=== PATIENT | male | born 1975 | race Caucasian/White ===

== ENCOUNTER 2023-12-30 08:11 | Emergency (ER) | payer OTHER ==
[~2023-12-30] VITALS: Ht 175.3 cm; Wt 91.1 kg
[2023-12-30 09:00] VITALS: BP 107/76; PULSE 85; RESP 16; TEMP 98.2; O2SAT 96
[2023-12-30 09:49] LABS: Urine Bacteria None Seen /hpf (None Seen)
[2023-12-30 10:01] LABS: Urine Blood Negative /uL (Negative); Urine Clarity Turbid (Clear); Urine Color Yellow (Yellow); Urine Hyaline Cast FEW /lpf (0 - 2); Urine Mucus FEW (None Seen); Urine Protein, UAD 1+ (Negative); Urine Specific Gravity 1.039 (1.001-1.035); Urine Urobilinogen 12 mg/dL (Negative); Urine WBC 12 /hpf (0 - 3); Urine pH 5.5 (5.0-9.0)
[2023-12-30 10:11] LABS: Basophils # (auto) 0 10 ^3/uL (0-0.2); Basophils % (auto) 0.2 % (0.0-2.0); Eosinophils # (auto) 0 10 ^3/uL (0-0.8); Eosinophils % (auto) 0.5 % (0.0-7.0); Hematocrit 33.4 % (41.0-53.0); Hemoglobin 11.3 g/dL (13.5-17.5); Lymphocytes # (auto) 0.5 10 ^3/uL (0.4-5.4); Lymphocytes % (auto) 11.5 % (10.0-50.0); Mean Corpuscular Hemoglobin 27.2 pg (28.0-32.0); Mean Corpuscular Volume 80.1 fL (80.0-100.0); Monocytes # (auto) 0.5 10 ^3/uL (0-1.3); Monocytes % (auto) 11.8 % (0.0-12.0); Neutrophils # (auto) 3.2 10 ^3/uL (1.6-8.6); Nucleated Red Blood Cells % 0.1 %; Platelet Count (auto) 72 10^3/uL (140-450); Red Blood Cells 4.17 10^6/uL (4.5-5.90); Red Cell Distribution Width 15.8 % (11.8-14.3); White Blood Cell 4.2 10^3/uL (4.4-10.8)
[2023-12-30 10:27] LABS: Chloride 104 mmol/L (98-107); Potassium 3.9 mmol/L (3.5-5.1); Sodium 137 mmol/L (136-145)
[2023-12-30 10:28] LABS: Anion Gap 7 (5-15); Carbon Dioxide 26 mmol/L (20-30)
[2023-12-30 10:29] LABS: Calcium 8.9 mg/dL (8.7-10.4)
[2023-12-30 10:33] LABS: BUN/Creatinine Ratio 15.1 (10.0-20.0); Blood Urea Nitrogen 14 mg/dL (9-23); Glucose 102 mg/dL (74-106)
[2023-12-30] MEDS ORDERED: POTA-228 PO (10:52)
[2023-12-30] MEDS ORDERED: NAPR-746 PO (10:52)
[2023-12-30] MEDS ORDERED: FURO1TAB31 PO ×2 (10:52→18:14)
== END 2023-12-30 10:51 | disposition home or self-care (01) ==
LOC: ER 08:11
DX: M71.22 Synovial cyst of popliteal space [Baker], left knee (principal); R60.9 Edema, unspecified
CPT/HCPCS: 36415; 80048; 81001; 83880; 85025; 93971

== ENCOUNTER 2024-01-01 07:48 | Inpatient (IN) | payer OTHER ==
[~2024-01-01] VITALS: Ht 175.3 cm; Wt 91.4 kg
[~2024-01-01 07:48] MED LIST: FURO1TAB31 PO; NAPR-746 PO; POTA-228 PO
[2024-01-01 09:30] VITALS: RESP 16; O2SAT 98
[2024-01-01 09:48] LABS: Basophils # (auto) 0 10 ^3/uL (0-0.2); Basophils % (auto) 0.5 % (0.0-2.0); Eosinophils # (auto) 0 10 ^3/uL (0-0.8); Eosinophils % (auto) 0.4 % (0.0-7.0); Hematocrit 33.4 % (41.0-53.0); Hemoglobin 11.4 g/dL (13.5-17.5); Lymphocytes # (auto) 0.4 10 ^3/uL (0.4-5.4); Mean Corpuscular Hemoglobin 27.8 pg (28.0-32.0); Mean Corpuscular Hgb Conc. 34.2 g/dL (32.0-36.0); Mean Corpuscular Volume 81.2 fL (80.0-100.0); Monocytes # (auto) 0.4 10 ^3/uL (0-1.3); Monocytes % (auto) 8.7 % (0.0-12.0); Neutrophils # (auto) 3.8 10 ^3/uL (1.6-8.6); Neutrophils % (auto) 82.4 % (37.0-80.0); Platelet Count (auto) 106 10^3/uL (140-450); Red Blood Cells 4.12 10^6/uL (4.5-5.90); Red Cell Distribution Width 15.4 % (11.8-14.3); White Blood Cell 4.6 10^3/uL (4.4-10.8)
[2024-01-01] MEDS: cefTRIAXone 1GM/50ML D5W 50 ML IV ONE (09:48)
[2024-01-01] MEDS: KETOROLAC TROMETH 30 MG/ML 1ML VIAL IV ONE (09:48)
[2024-01-01 09:49] LABS: Chloride 100 mmol/L (98-107); Potassium 3.2 mmol/L (3.5-5.1); Sodium 136 mmol/L (136-145)
[2024-01-01 09:50] LABS: Anion Gap 8 (5-15); Carbon Dioxide 28 mmol/L (20-31)
[2024-01-01 09:51] LABS: Calcium 8.8 mg/dL (8.7-10.4)
[2024-01-01 09:55] LABS: BUN/Creatinine Ratio 10.9 (10.0-20.0); Blood Urea Nitrogen 10 mg/dL (9-23); Glucose 96 mg/dL (74-106)
[2024-01-01] MEDS: CLINDAMYCIN 900MG IV 50 ML IV ONE (10:21)
[2024-01-01] MEDS: POTASSIUM CHL 20 Meq TABLET PO ONE (10:29)
[2024-01-01] MEDS ORDERED: ONDANSETRON HCL 4 MG/2 ML VIAL IV PRN (16:45)
[2024-01-01] MEDS ORDERED: NITROGLYCERIN 0.4 MG SL TAB SL PRN (16:45)
[2024-01-01] MEDS ORDERED: DOCUSATE SOD 100 MG CAP PO PRN (16:45)
[2024-01-01] MEDS: PIPERACILLIN-TAZOB 3.375GM 100 ML IV ONE (16:45)
[2024-01-01] MEDS: MORPHINE SULFATE INJ 2 MG/ml SYRG IV PRN (17:58)
[2024-01-01] MEDS: ENOXAPARIN SOD 40 MG/0.4 ML SYRINGE SC SCH (18:11)
[2024-01-01] MEDS: PIPERACILLIN-TAZOB 3.375GM 100 ML IV SCH (18:44)
[2024-01-01 19:00] VITALS: BP 108/65; PULSE 94; RESP 16; TEMP 99.2; O2SAT 98
[2024-01-01 19:36] VITALS: BP 108/65; PULSE 94; RESP 16; TEMP 99.2; O2SAT 98
[2024-01-01 21:00] VITALS: BP 106/59; PULSE 109; RESP 18; TEMP 100.2; O2SAT 94
[2024-01-01] MEDS: HYDROcodone-ACET 5/325MG TAB PO PRN (21:46)
[2024-01-02 01:00] VITALS: BP 92/50; PULSE 90; RESP 15; TEMP 98.7; O2SAT 94
[2024-01-02 05:04] VITALS: BP 95/57; PULSE 73; RESP 18; TEMP 98.1; O2SAT 94
[2024-01-02 08:07] LABS: Basophils # (auto) 0 10 ^3/uL (0-0.2); Basophils % (auto) 0.4 % (0.0-2.0); Eosinophils # (auto) 0 10 ^3/uL (0-0.8); Eosinophils % (auto) 0.3 % (0.0-7.0); Hematocrit 30.5 % (41.0-53.0); Hemoglobin 10.2 g/dL (13.5-17.5); Lymphocytes # (auto) 0.5 10 ^3/uL (0.4-5.4); Lymphocytes % (auto) 10.2 % (10.0-50.0); Mean Corpuscular Hemoglobin 27.3 pg (28.0-32.0); Mean Corpuscular Hgb Conc. 33.6 g/dL (32.0-36.0); Mean Corpuscular Volume 81.4 fL (80.0-100.0); Monocytes # (auto) 0.4 10 ^3/uL (0-1.3); Monocytes % (auto) 7.6 % (0.0-12.0); Neutrophils % (auto) 81.5 % (37.0-80.0); Nucleated Red Blood Cells % 0.2 %; Platelet Count (auto) 112 10^3/uL (140-450); Red Blood Cells 3.74 10^6/uL (4.5-5.90); Red Cell Distribution Width 15.5 % (11.8-14.3); White Blood Cell 4.9 10^3/uL (4.4-10.8)
[2024-01-02 08:25] LABS: Albumin 3.2 g/dL (3.2-4.8); Alkaline Phosphatase 83 U/L (46-116); Anion Gap 10 (5-15); BUN/Creatinine Ratio 13.9 (10.0-20.0); Blood Urea Nitrogen 11 mg/dL (9-23); Calcium 8.4 mg/dL (8.7-10.4); Carbon Dioxide 24 mmol/L (20-31); Chloride 102 mmol/L (98-107); Glucose 93 mg/dL (74-106); Potassium 3.2 mmol/L (3.5-5.1); Sodium 136 mmol/L (136-145)
[2024-01-02 08:26] LABS: Aspartate Aminotransferase 12 U/L (13-40); Bilirubin, Total 1.1 mg/dL (0.2-1.0); Total Protein 6.1 g/dL (5.7-8.2)
[2024-01-02 08:28] LABS: Alanine Aminotransferase < 9 U/L (7-40)
[2024-01-02 09:00] VITALS: BP 104/65; PULSE 85; RESP 20; TEMP 99.3; O2SAT 95
[2024-01-02] MEDS: ACETAMINOPHEN 325 MG TAB PO PRN (12:27)
[2024-01-02] MEDS: SOD CHL 0.9%/ KCL 40MEQ 1,000 ML IV SCH (15:30)
[2024-01-02 17:00] VITALS: BP 96/57; PULSE 96; RESP 19; TEMP 98.3; O2SAT 100
[2024-01-02] MEDS ORDERED: CLINDAMYCIN 900MG IV 50 ML IV ONE ×2 (18:00→20:00)
[2024-01-02 21:00] VITALS: BP 102/59; PULSE 82; RESP 20; TEMP 98.9; O2SAT 95
[2024-01-02] MEDS: CLINDAMYCIN 600MG IV 50 ML IV SCH (22:41)
[2024-01-03 01:00] VITALS: BP 101/59; PULSE 80; RESP 18; TEMP 98.1; O2SAT 100
[2024-01-03 05:00] VITALS: BP 97/62; PULSE 85; RESP 18; TEMP 98.2; O2SAT 98
[2024-01-03] MEDS: POTASSIUM EFFERVESENT TAB 25 MEQ GT SCH (09:04)
[2024-01-03] MEDS ORDERED: VANCOMYCIN PER PHARMACY 0 MG IV SCH (09:30)
[2024-01-03] MEDS: VANCOMYCIN 1GM/250ML 200 ML IV SCH ×2 (10:44→22:01)
[2024-01-03] MEDS: ERTAPENEM SOD INJ 1 GM in SODIUM CHL 0.9% 50 ML IV ONE (10:50)
[2024-01-03 11:07] LABS: Basophils # (auto) 0 10 ^3/uL (0-0.2); Basophils % (auto) 0.6 % (0.0-2.0); Eosinophils # (auto) 0 10 ^3/uL (0-0.8); Eosinophils % (auto) 1.1 % (0.0-7.0); Hematocrit 30.2 % (41.0-53.0); Hemoglobin 10.3 g/dL (13.5-17.5); Lymphocytes # (auto) 0.5 10 ^3/uL (0.4-5.4); Lymphocytes % (auto) 12.9 % (10.0-50.0); Mean Corpuscular Hemoglobin 27.4 pg (28.0-32.0); Mean Corpuscular Volume 80.4 fL (80.0-100.0); Monocytes # (auto) 0.3 10 ^3/uL (0-1.3); Monocytes % (auto) 7.8 % (0.0-12.0); Neutrophils # (auto) 3.1 10 ^3/uL (1.6-8.6); Neutrophils % (auto) 77.6 % (37.0-80.0); Nucleated Red Blood Cells % 0.1 %; Platelet Count (auto) 139 10^3/uL (140-450); Red Blood Cells 3.75 10^6/uL (4.5-5.90); Red Cell Distribution Width 15.4 % (11.8-14.3)
[2024-01-03 11:38] LABS: Erythrocyte Sedimentation Rate 96 mm/hr (0-20)
[2024-01-03 21:00] VITALS: BP 94/57; PULSE 93; RESP 20; TEMP 98.4; O2SAT 95
[2024-01-04 01:00] VITALS: BP 96/57; PULSE 86; RESP 20; TEMP 98.3; O2SAT 96
[2024-01-04 05:00] VITALS: BP 100/65; PULSE 76; RESP 20; TEMP 97.8; O2SAT 96
[2024-01-04 08:06] LABS: Basophils # (auto) 0 10 ^3/uL (0-0.2); Basophils % (auto) 0.8 % (0.0-2.0); Eosinophils # (auto) 0.1 10 ^3/uL (0-0.8); Eosinophils % (auto) 1.7 % (0.0-7.0); Hematocrit 26.6 % (41.0-53.0); Lymphocytes # (auto) 0.6 10 ^3/uL (0.4-5.4); Lymphocytes % (auto) 17.2 % (10.0-50.0); Mean Corpuscular Hemoglobin 27.3 pg (28.0-32.0); Mean Corpuscular Hgb Conc. 33.8 g/dL (32.0-36.0); Mean Corpuscular Volume 80.7 fL (80.0-100.0); Monocytes # (auto) 0.3 10 ^3/uL (0-1.3); Monocytes % (auto) 9.3 % (0.0-12.0); Neutrophils # (auto) 2.4 10 ^3/uL (1.6-8.6); Platelet Count (auto) 128 10^3/uL (140-450); Red Cell Distribution Width 15.5 % (11.8-14.3); White Blood Cell 3.4 10^3/uL (4.4-10.8)
[2024-01-04 08:41] VITALS: BP 105/68; PULSE 76; RESP 18; TEMP 97.6; O2SAT 98
[2024-01-04 08:47] LABS: Hepatitis B Surface Antigen Negative (Negative)
[2024-01-04 09:09] LABS: Hepatitis C Antibody Negative (Negative)
[2024-01-04] MEDS: ERTAPENEM SOD INJ 1 GM in SODIUM CHL 0.9% 50 ML IV SCH (11:48)
[2024-01-04] MEDS: POTASSIUM EFFERVESENT TAB 25 MEQ PO SCH (12:03)
[2024-01-04 13:00] VITALS: BP 104/68; PULSE 86; RESP 16; TEMP 97.9; O2SAT 96
[2024-01-04] MEDS: FUROSEMIDE 20 MG TAB PO SCH (13:05)
[2024-01-04 17:00] VITALS: BP 97/62; PULSE 79; RESP 16; TEMP 98; O2SAT 99
[2024-01-04 21:00] VITALS: BP 102/69; PULSE 80; RESP 20; TEMP 98.4; O2SAT 97
[2024-01-05 01:00] VITALS: BP 94/60; PULSE 84; RESP 19; TEMP 98.6; O2SAT 96
[2024-01-05 05:00] VITALS: BP 100/68; PULSE 81; RESP 20; TEMP 98; O2SAT 98
[2024-01-05 07:32] LABS: Chloride 105 mmol/L (98-107); Sodium 138 mmol/L (136-145)
[2024-01-05 07:33] LABS: Anion Gap 6 (5-15); Carbon Dioxide 27 mmol/L (20-31)
[2024-01-05 07:34] LABS: Calcium 8.8 mg/dL (8.7-10.4)
[2024-01-05 07:38] LABS: BUN/Creatinine Ratio 14.9 (10.0-20.0); Blood Urea Nitrogen 11 mg/dL (9-23); Glucose 89 mg/dL (74-106)
[2024-01-05 09:00] VITALS: BP 95/62; PULSE 106; RESP 18; TEMP 98.2; O2SAT 98
[2024-01-05 13:00] VITALS: BP 96/59; PULSE 86; RESP 17; TEMP 98.3; O2SAT 95
[2024-01-05 17:00] VITALS: BP 103/59; PULSE 72; RESP 17; TEMP 98.3; O2SAT 99
[2024-01-05] MEDS ORDERED: VANCOMYCIN 1GM/250ML 200 ML IV SCH (18:30)
[2024-01-05] MEDS: VANCOMYCIN 1GM/250ML 200 ML IV SCH (21:50)
[2024-01-05 22:00] VITALS: BP 97/61; PULSE 86; RESP 20; TEMP 98.6; O2SAT 95
[2024-01-06] VITALS (7 sets, daily range): BP systolic 96–105; BP diastolic 57–65; PULSE 80–95; RESP 18–20; TEMP 98–98.6; O2SAT 94–100
[2024-01-06 07:38] LABS: Basophils # (auto) 0 10 ^3/uL (0-0.2); Basophils % (auto) 1.2 % (0.0-2.0); Eosinophils # (auto) 0.1 10 ^3/uL (0-0.8); Eosinophils % (auto) 2.1 % (0.0-7.0); Hemoglobin 9.2 g/dL (13.5-17.5); Lymphocytes # (auto) 0.5 10 ^3/uL (0.4-5.4); Lymphocytes % (auto) 21.2 % (10.0-50.0); Mean Corpuscular Hemoglobin 27.3 pg (28.0-32.0); Mean Corpuscular Hgb Conc. 33.9 g/dL (32.0-36.0); Mean Corpuscular Volume 80.5 fL (80.0-100.0); Monocytes # (auto) 0.2 10 ^3/uL (0-1.3); Monocytes % (auto) 9.6 % (0.0-12.0); Neutrophils # (auto) 1.7 10 ^3/uL (1.6-8.6); Neutrophils % (auto) 65.9 % (37.0-80.0); Platelet Count (auto) 149 10^3/uL (140-450); Red Blood Cells 3.36 10^6/uL (4.5-5.90); Red Cell Distribution Width 15.3 % (11.8-14.3); White Blood Cell 2.5 10^3/uL (4.4-10.8)
[2024-01-06] MEDS: VANCOMYCIN 1GM/250ML 200 ML IV SCH (20:32)
[2024-01-07 01:00] VITALS: BP 108/64; PULSE 84; RESP 20; TEMP 98; O2SAT 99
[2024-01-07 05:00] VITALS: BP 131/76; PULSE 56; RESP 20; TEMP 97.1; O2SAT 100
[2024-01-07 08:47] VITALS: BP 99/66; PULSE 73; RESP 20; TEMP 98.6; O2SAT 94
[2024-01-07 13:00] VITALS: BP 100/62; PULSE 56; RESP 18; TEMP 98.6; O2SAT 94
[2024-01-07] MEDS ORDERED: HYDR-4902 PO (14:29)
[2024-01-07] MEDS ORDERED: AUG875T PO (14:29)
[2024-01-07] MEDS ORDERED: BACDST PO (14:29)
[2024-01-07 17:14] VITALS: BP 95/64; PULSE 81; RESP 18; TEMP 98.7; O2SAT 96
== END 2024-01-07 18:50 | disposition home or self-care (01) | DRG 603 ==
LOC: ER 07:48 → OVERFLOW 16:53 → CENTRAL 18:54
PROVIDERS: ADMIT Nurse Practitioner Family; ATTEND Nurse Practitioner Acute Care
DX: L03.116 Cellulitis of left lower limb (principal); M60.88 Other myositis, other site; E87.6 Hypokalemia; D69.6 Thrombocytopenia, unspecified; E66.3 Overweight; A46 Erysipelas; R73.9 Hyperglycemia, unspecified; M25.462 Effusion, left knee; D53.9 Nutritional anemia, unspecified; M66.0 Rupture of popliteal cyst; M60.9 Myositis, unspecified; Z80.7 Family history of other malignant neoplasms of lymphoid, hematopoietic and related tissues; Z68.29 Body mass index [BMI] 29.0-29.9, adult
CPT/HCPCS: 36415; 73562; 73590; 73718; 73721; 80048; 80053; 80202; 82550; 82565; 82962; 83036; 83605; 83615; 83735; 85025; 85652; 86803; 87040; 87340; 93971; 96365; 96367; 96375; G0378; J1335; J1885; J2543; J3490